=== PATIENT | female | born 2000 | race Caucasian/White ===

== ENCOUNTER 2020-02-09 14:15 | Inpatient (IN) | payer MEDICAID ==
[~2020-02-09] VITALS: Ht 167.6 cm; Wt 71.7 kg
[~2020-02-09 14:15] MED LIST: LIDOCAINE HCL 2%/EPINEPHRINE 1:100,000 20 ML VIAL INFIL ONE
[2020-02-09] MEDS ORDERED: DEXT 5%/LR + PITOCIN 20UNITS/L 1,000 ML IV SCH (18:14)
[2020-02-09] MEDS ORDERED: LACTATED RINGERS 1,000 ML IV SCH (18:14)
[2020-02-09] MEDS ORDERED: BUTORPHANOL TARTRATE 2 MG/ML VIAL IV PRN (18:15)
[2020-02-09] MEDS ORDERED: METHYLERGONOVINE MALEATE 0.2 MG/ML IM PRN (18:15)
[2020-02-09] MEDS ORDERED: CARBOPROST TROMETHAMINE 250 MCG/ML AMPUL IM PRN (18:15)
[2020-02-09] MEDS ORDERED: MISOPROSTOL 100MCG TABLET VG SCH (18:15)
[2020-02-09] MEDS ORDERED: LIDOCAINE HCL 1% 20ML VIAL (Pyxis) INJ INFIL SCH (18:31)
[2020-02-09 18:35] LABS: BASOPHILS % 0.2 % (0.0-2.0); EOSINOPHILS % 0.2 % (0.0-5.0); HEMATOCRIT. 39.9 % (36.0-48.0); HEMOGLOBIN. 13.8 g/dL (12.0-16.0); LYMPHOCYTES % 11.8 % (20.0-50.0); MEAN CORPUSCULAR HEMOGLOBIN 33.3 pg (28.0-32.0); MEAN CORPUSCULAR VOLUME 96.4 fL (81.0-99.0); MEAN PLATELET VOLUME 8.9 fl (7.4-10.4); MONOCYTES % 5.2 % (2.0-8.0); NEUTROPHILS % 82.6 % (40.0-76.0); PLATELET 227 x1000/uL (130-400); RED BLOOD CELL COUNT 4.14 mill/uL (4.2-5.4); RED CELL DISTRIBUTION WIDTH 12.9 % (11.6-14.6)
[2020-02-09 18:36] LABS: CLARITY URINE CLEAR (CLEAR); COLOR URINE YELLOW (YELLOW); KETONES URINE NEGATIVE (NEGATIVE); LEUKOCYTE ESTERASE URINE 2+ (NEGATIVE); NITRITE URINE NEGATIVE (NEGATIVE); OCCULT BLOOD URINE 3+ (NEGATIVE); PH URINE 7.5 (4.5-8.0); PROTEIN URINE NEGATIVE (NEGATIVE); UROBILINOGEN URINE 0.2 E.U./dL (0.2-1.0)
[2020-02-09 18:50] LABS: INR 0.9; PARTIAL THROMBOPLASTIN TIME 27.4 sec (23.4-31.0); PROTHROMBIN TIME 9.5 sec (9.6-11.0)
[2020-02-09 19:03] LABS: *AMPHETAMINES SCREEN URINE NEGATIVE (NEGATIVE); *BARBITURATES SCREEN URINE NEGATIVE (NEGATIVE); *BENZODIAZEPINES SCREEN URINE NEGATIVE (NEGATIVE); *COCAINE SCREEN URINE NEGATIVE (NEGATIVE); CANNABINOID URINE SCREEN NEGATIVE (NEGATIVE); METHADONE URINE SCREEN NEGATIVE (NEGATIVE); OPIATES URINE SCREEN NEGATIVE (NEGATIVE); PHENCYCLIDINE URINE SCREEN NEGATIVE (NEGATIVE)
[2020-02-09 19:17] LABS: HEPATITIS B SURFACE ANTIGEN NEGATIVE
[2020-02-09] MEDS ORDERED: ROPIVACAINE HCL/PF EPIDURAL 200 ML EPI SCH (20:30)
[2020-02-10] MEDS ORDERED: DEXT 5%/LR + PITOCIN 20UNITS/L 1,000 ML IV SCH (03:04)
[2020-02-10] MEDS ORDERED: BISACODYL 10MG SUPP PR PRN (03:15)
[2020-02-10] MEDS ORDERED: BENZOCAINE/LANOLIN/ALOE VERA SPRAY TOP PRN (03:15)
[2020-02-10] MEDS ORDERED: ACETAMINOPHEN WITH CODEINE 300/30MG TABLET PO PRN (03:15)
[2020-02-10] MEDS ORDERED: DIPHENHYDRAMINE 25MG CAPSULE PO PRN (03:15)
[2020-02-10] MEDS ORDERED: HEMORRHOIDAL SUPP PR PRN (03:15)
[2020-02-10] MEDS ORDERED: RHO(D) IMMUNE GLOBULIN 300 MCG/SYR IM PRN (03:15)
[2020-02-10] MEDS ORDERED: IBUPROFEN 400MG TABLET PO PRN (03:15)
[2020-02-10] MEDS ORDERED: LANOLIN OINT 7GM TUBE TOP PRN (03:15)
[2020-02-10] MEDS ORDERED: GLYCERIN/WITCH HAZEL LEAF MEDICATED PAD TOP PRN (03:15)
[2020-02-10 04:00] VITALS: BP 114/69
[2020-02-10 07:30] VITALS: BP 98/53
[2020-02-10 17:18] VITALS: BP 101/61
[2020-02-10] MEDS: IBUPROFEN 800MG TABLET PO PRN (17:38)
[2020-02-10] MEDS: PRENATAL VIT/FE FUMARATE/FA TABLET PO SCH (17:38)
[2020-02-10] MEDS: SIMETHICONE 80MG TABLET CHEW PO SCH ×2 (17:39→21:03)
[2020-02-10 19:00] VITALS: BP 112/70
[2020-02-10] MEDS ORDERED: DOCUSATE SODIUM 100MG CAPSULE PO SCH (21:00)
[2020-02-10] MEDS: MAGNESIUM/ALUMINUM HYDROXIDE/SIMETHICONE 30ML UDC PO SCH (21:03)
[2020-02-11 03:30] VITALS: BP 105/63
[2020-02-11 06:25] LABS: BASOPHILS % 0.4 % (0.0-2.0); EOSINOPHILS % 0.8 % (0.0-5.0); HEMOGLOBIN. 14.6 g/dL (12.0-16.0); LYMPHOCYTES % 13.4 % (20.0-50.0); MEAN CORPUSCULAR HEMOGLOBIN 33.1 pg (28.0-32.0); MEAN CORPUSCULAR VOLUME 97.1 fL (81.0-99.0); MONOCYTES % 7.6 % (2.0-8.0); NEUTROPHILS % 77.8 % (40.0-76.0); PLATELET 201 x1000/uL (130-400); RED BLOOD CELL COUNT 4.42 mill/uL (4.2-5.4); RED CELL DISTRIBUTION WIDTH 13.2 % (11.6-14.6)
[2020-02-11] MEDS ORDERED: FERROUS SULFATE 325MG TABLET PO SCH (07:30)
[2020-02-11 09:20] VITALS: BP 107/60
[2020-02-11] MEDS: MAGNESIUM/ALUMINUM HYDROXIDE/SIMETHICONE 30ML UDC PO SCH (09:28)
[2020-02-11] MEDS: PRENATAL VIT/FE FUMARATE/FA TABLET PO SCH (09:28)
[2020-02-11] MEDS: IBUPROFEN 800MG TABLET PO PRN (09:28)
[2020-02-11] MEDS: SIMETHICONE 80MG TABLET CHEW PO SCH (09:28)
== END 2020-02-11 13:05 | disposition home or self-care (01) | DRG 560 ==
LOC: 8 EST LDRP 14:15 → OBSVTOIN 14:15 → 8 EST LDRP 15:39 → 8EST 02-10 03:00
PROVIDERS: ADMIT Obstetrics & Gynecology; ATTEND Obstetrics & Gynecology
PROC: 10E0XZZ Delivery of Products of Conception, External Approach (ICD-10-PCS; principal; 2020-02-10)
PROC: 0KQM0ZZ Repair Perineum Muscle, Open Approach (ICD-10-PCS; 2020-02-10)
PROC: 3E0R3BZ Introduction of Anesthetic Agent into Spinal Canal, Percutaneous Approach (ICD-10-PCS; 2020-02-10)
PROC: 00HU33Z Insertion of Infusion Device into Spinal Canal, Percutaneous Approach (ICD-10-PCS; 2020-02-10)
DX: O70.1 Second degree perineal laceration during delivery (principal); Z37.0 Single live birth; Z3A.40 40 weeks gestation of pregnancy
CPT/HCPCS: 36415; 80305; 81003; 85025; 86592; 86703; 86762; 86850; 86900; 87340; 99281; J2590; J2795; J3490